=== PATIENT | male | born 1995 | race Caucasian/White ===

== ENCOUNTER → 2020-08-15 | Outpatient (CLI) | payer OTHER | LOC: RAD 14:49 | DX: R10.9 Unspecified abdominal pain (principal) | CPT/HCPCS: 74018 ==

== ENCOUNTER 2020-09-21 21:54 | Emergency (ER) | payer OTHER | END 2020-09-21 22:58 | disposition left against medical advice (07) | LOC: ER1 21:54 | DX: Z53.21 Procedure and treatment not carried out due to patient leaving prior to being seen by health care provider (principal) ==